=== PATIENT | male | born 1965 | race Caucasian/White ===

== ENCOUNTER 2017-12-07 22:05 | Emergency (ER) | payer SELFPAY ==
[2017-12-07] MEDS ORDERED: NA CHLORIDE 0.9% 1,000 ML ONE (22:48)
[2017-12-07 23:18] LABS: Absolute Lymphocytes (CBC) 1.7 K/uL (0.7-4.9); Absolute Neutrophil 13.9 K/uL (1.8-8.0); Basophils % 0.5 % (0-1.3); Eosinophils % 0.9 % (0-4.4); Hematocrit 39.6 % (39.6-49.0); Lymphocytes % 9.9 % (15.3-44.8); MCH 31.3 pg (27.0-35.0); MCV 89.6 fL (80-100); Monocytes % 6.1 % (3.3-12.3); RBC Red Blood Cell Count 4.42 M/uL (4.33-5.43)
[2017-12-07 23:29] LABS: ALT/SGPT 22 U/L (12-78); AST/SGOT 14 U/L (15-37); Albumin 3.9 g/dL (3.4-5.0); Alkaline Phosphatase 52 U/L (45-117); BUN Blood Urea Nitrogen 13 mg/dL (7-18); Bicarbonate 27 mmol/L (21-32); Bilirubin Direct < 0.1 mg/dL (0-0.2); Bilirubin Total 0.3 mg/dL (0.2-1.0); Glucose Level 107 mg/dL (74-106); Magnesium 2.3 mg/dL (1.8-2.4); Potassium 3.7 mmol/L (3.5-5.1); Sodium Level 144 mmol/L (136-145)
[2017-12-07] MEDS ORDERED: HYDROCODONE/CHLORPHEN 5 ML/OSYR ONE (23:32)
--- NOTE | 2017-12-08 00:47 | EDPHYS ---
Physician Documentation [facility] Name: Sterling Butcher Age: 52 yrs Sex: Male : 1965 Arrival Date: 12/07/2017 Time: 22:06 Bed 18 Private MD: ED Physician Saroj Ayon HPI: 12/08 00:00 This 52 yrs old Male presents to ER via EMS with complaints of Cough. pm1 00:00 The patient or guardian reports cough, with no sputum. Severity of symptoms: in the pm1 emergency department the symptoms. 00:00 Onset: The symptoms/episode began/occurred 3 day(s) ago. Modifying factors: The pm1 symptoms are alleviated by nothing, the symptoms are aggravated by nothing. Associated signs and symptoms: Pertinent positives: chest pain, with cough, fever, Pertinent negatives: sore throat, Shortness of breath. The patient has experienced similar episodes in the past, multiple times. The patient has not recently seen a physician. Patient presenting to the ER with complaints of cough. Patient with chest pain present only with coughing. He drank 2 monsters and 6 coffees to keep up playing with his grandchildren. . Historical: - Allergies: 12/07 22:13 Toradol; jd3 22:13 Benadryl; jd3 22:13 Phenergan; jd3 22:13 Flexeril; jd3 - Home Meds: 22:13 None [Active]; jd3 - PMHx: 22:13 Myocardial infarction; shingles; Hypertension; jd3 - PSHx: 22:13 right shoulder sx; jd3 - Immunization history:: Adult Immunizations up to date, Flu vaccine is up to date. - Social history:: Smoking status: Patient uses tobacco products, smokes one-half pack cigarettes per day. - Ebola Screening: : Patient negative for fever greater than or equal to 101.5 degrees Fahrenheit, and additional compatible Ebola Virus Disease symptoms. ROS: 12/08 00:00 Constitutional: Negative for fever, chills, and weight loss, Eyes: Negative for injury, pm1 pain, redness, and discharge, ENT: Negative for injury, pain, and discharge, Neck: Negative for injury, pain, and swelling, Cardiovascular: Negative for chest pain, palpitations, and edema. Abdomen/GI: Negative for abdominal pain, nausea, vomiting, diarrhea, and constipation, Back: Negative for injury and pain, : Negative for injury, bleeding, discharge, and swelling, MS/Extremity: Negative for injury and deformity, Skin: Negative for injury, rash, and discoloration, Neuro: Negative for headache, weakness, numbness, tingling, and seizure. Respiratory: Positive for cough, Negative for shortness of breath, sputum production, wheezing. Exam: 00:00 Constitutional: This is a well developed, well nourished patient who is awake, alert, pm1 and in no acute distress. Head/Face: Normocephalic, atraumatic. Eyes: Pupils equal round and reactive to light, extra-ocular motions intact. Lids and lashes normal. Conjunctiva and sclera are non-icteric and not injected. Cornea within normal limits. Periorbital areas with no swelling, redness, or edema. ENT: Nares patent. No nasal discharge, no septal abnormalities noted. Tympanic membranes are normal and external auditory canals are clear. Oropharynx with no redness, swelling, or masses, exudates, or evidence of obstruction, uvula midline. Mucous membranes moist. Neck: Trachea midline, no thyromegaly or masses palpated, and no cervical lymphadenopathy. Supple, full range of motion without nuchal rigidity, or vertebral point tenderness. No Meningismus. Chest/axilla: Normal chest wall appearance and motion. Nontender with no deformity. No lesions are appreciated. Cardiovascular: Regular rate and rhythm with a normal S1 and S2. No gallops, murmurs, or rubs. Normal PMI, no JVD. No pulse deficits. Respiratory: Lungs have equal breath sounds bilaterally, clear to auscultation and percussion. No rales, rhonchi or wheezes noted. No increased work of breathing, no retractions or nasal flaring. Abdomen/GI: Soft, non-tender, with normal bowel sounds. No distension or tympany. No guarding or rebound. No evidence of tenderness throughout. Back: No spinal tenderness. No costovertebral tenderness. Full range of motion. Skin: Warm, dry with normal turgor. Normal color with no rashes, no lesions, and no evidence of cellulitis. MS/ Extremity: Pulses equal, no cyanosis. Neurovascular intact. Full, normal range of motion. 00:00 Neuro: Orientation: is normal, Motor: is normal, moves all fours. Vital Signs: 12/07 22:14 BP 150 / 87; Pulse 128; Resp 20 S; Temp 98.5(O); Pulse Ox 99% on R/A; Weight 83.01 kg jd3 (R); Height 5 ft. 5 in. (165.10 cm) (R); Pain 8/10; 23:29 BP 122 / 78; Pulse 94; Resp 17 S; Pulse Ox 98% on R/A; jd3 12/08 01:10 BP 126 / 82; Pulse 84; Resp 16 S; Pulse Ox 98% on R/A; jd3 12/07 22:14 Body Mass Index 30.45 (83.01 kg, 165.10 cm) jd3 MDM: 12/07 22:32 Patient medically screened. pm1 12/08 00:46 Data reviewed: vital signs. Data interpreted: Pulse oximetry: on room air is 98 %. pm1 Interpretation: normal. Counseling: I had a detailed discussion with the patient and/or guardian regarding: the historical points, exam findings, and any diagnostic results supporting the discharge/admit diagnosis, lab results, radiology results, the need for outpatient follow up, to return to the emergency department if symptoms worsen or persist or if there are any questions or concerns that arise at home. 12/07 22:39 Order name: LFT's; Complete Time: 23:35 pm1 12/07 22:39 Order name: Magnesium; Complete Time: 23:35 pm1 12/07 22:39 Order name: Basic Metabolic Panel; Complete Time: 23:35 pm1 12/07 22:39 Order name: CBC with Diff; Complete Time: 23:26 pm1 12/07 22:39 Order name: XRAY Chest (1 view) pm1 12/07 23:38 Order name: Flu; Complete Time: 00:43 pm1 12/07 22:39 Order name: EKG; Complete Time: 22:39 pm1 12/07 22:39 Order name: Cardiac monitoring; Complete Time: 22:39 pm1 12/07 22:39 Order name: EKG - Nurse/Tech; Complete Time: 22:39 pm1 12/07 22:39 Order name: IV Saline Lock; Complete Time: 22:40 pm1 12/07 22:39 Order name: Labs collected and sent; Complete Time: 22:49 pm1 12/07 22:39 Order name: O2 Per Protocol; Complete Time: 22:40 pm1 12/07 22:39 Order name: O2 Sat Monitoring; Complete Time: 22:40 pm1 Administered Medications: 12/07 22:49 Drug: NS 0.9% 1000 ml Route: IV; Rate: 1000 ml; Site: right antecubital; jd3 23:55 Follow up: Response: No adverse reaction; IV Status: Completed infusion; IV Intake: jd3 1000ml 23:28 Drug: Tussionex Pennkinetic ER 5 ml Route: PO; jd3 23:55 Follow up: Response: No adverse reaction jd3 23:28 CANCELLED (Duplicate Order): Tussionex Pennkinetic ER 5 ml PO once jd3 12/08 00:57 Drug: Rocephin 1 grams Route: IV; Rate: calculated rate; Site: right antecubital; jd3 01:11 Follow up: Response: No adverse reaction; IV Status: Completed infusion jd3 Disposition: 12/08/17 00:47 Discharged to Home. Impression: Bronchitis, not specified as acute or chronic. - Condition is Stable. - Discharge Instructions: Acute Bronchitis, Adult, Steps to Quit Smoking, [id number], How to Use an Inhaler, [id number]. - Prescriptions for Zithromax Z- Maynor 250 mg Oral Tablet - take 1 tablet by ORAL route as directed for 5 days Day 1 - take two (2) tablets one time. Day 2, 3, 4 , 5 take one (1) tablet once daily.; 6 tablet. Medrol (Maynor) 4 mg Oral Tablets, Dose Pack - take 1 tablet by ORAL route as directed - follow package instructions; 1 packet. Albuterol Sulfate 90 mcg/actuation - inhale 1-2 puff by INHALATION route every 4-6 hours; 1 Inhaler. Guaifenesin AC 10- 100 mg/5 mL Oral Liquid - take 10 milliliter by ORAL route every 4 hours As needed; 240 milliliter. - Medication Reconciliation Form, Thank You Letter, Antibiotic Education form. - Follow up: Emergency Department; When: As needed; Reason: Worsening of condition. Follow up: Private Physician; When: 2 - 3 days; Reason: Recheck today's complaints, Continuance of care, Re-evaluation by your physician. - Problem is new. - Symptoms have improved. Addendum: 12/09/2017 04:10 Co-signature as Attending Physician, Saroj Ayon MD. g s Signatures: Dispatcher [employer] EDMS Cristo Dicskon, MOVING WORKER MOVING WORKER pm1 Saroj Ayon MD MD gs Davies, Jonathon, RN RN jd3 Corrections: (The following items were deleted from the chart) 12/07 23:28 23:28 Tussionex Pennkinetic ER Suspension 5 ml PO once ordered. jd3 jd3 12/08 01:11 00:47 12/08/2017 00:47 Discharged to Home. Impression: Bronchitis, not specified as jd3 acute or chronic. Condition is Stable. Forms are Medication Reconciliation Form, Thank You Letter, Antibiotic Education, Prescription Opioid Use. Follow up: Emergency Department; When: As needed; Reason: Worsening of condition. Follow up: Private Physician; When: 2 - 3 days; Reason: Recheck today's complaints, Continuance of care, Re-evaluation by your physician. Problem is new. Symptoms have improved. pm1
--- NOTE | 2017-12-08 00:47 | ER ---
Nurse's Notes [facility] Name: Sterling Butcher Age: 52 yrs Sex: Male : 1965 Arrival Date: 12/07/2017 Time: 22:06 Bed 18 Private MD: Diagnosis: Bronchitis, not specified as acute or chronic Presentation: 12/07 22:07 Presenting complaint: Patient states: "my chest hurts I'm coughing so hard, I also have jd3 been having a headache and a fever today." EMS states: "we were told that he had a fever prior to arrival, no fever when we took it, but he has also been coughing really hard for the past three hours saying it is really starting to hurt.". Transition of care: patient was not received from another setting of care. Onset of symptoms was December 07, 2017. Risk Assessment: Do you want to hurt yourself or someone else? Patient reports no desire to harm self or others. Initial Sepsis Screen: Does the patient meet any 2 criteria? HR > 90 bpm. No. Patient's initial sepsis screen is negative. Does the patient have a suspected source of infection? Yes: Productive cough/pneumonia. Care prior to arrival: Medication(s) given: zofran 4 mg, IV initiated. 20 GA, in the right antecubital area, Glucose check: 120. 22:07 Method Of Arrival: EMS: [facility] jd3 22:07 Acuity: SHEREE 2 jd3 Historical: - Allergies: 22:13 Toradol; jd3 22:13 Benadryl; jd3 22:13 Phenergan; jd3 22:13 Flexeril; jd3 - Home Meds: 22:13 None [Active]; jd3 - PMHx: 22:13 Myocardial infarction; shingles; Hypertension; jd3 - PSHx: 22:13 right shoulder sx; jd3 - Immunization history:: Adult Immunizations up to date, Flu vaccine is up to date. - Social history:: Smoking status: Patient uses tobacco products, smokes one-half pack cigarettes per day. - Ebola Screening: : Patient negative for fever greater than or equal to 101.5 degrees Fahrenheit, and additional compatible Ebola Virus Disease symptoms. Screenin:19 Abuse screen: Denies threats or abuse. Nutritional screening: No deficits noted. jd3 Tuberculosis screening: Tuberculosis screening: No symptoms or risk factors identified. Fall Risk IV access (20 points). Ambulatory Aid- None/Bed Rest/Nurse Assist (0 pts). Gait- Normal/Bed Rest/Wheelchair (0 pts) Mental Status- Oriented to own ability (0 pts). Total Doyle Fall Scale indicates No Risk (0-24 pts). Assessment: 22:15 General: Appears uncomfortable, Behavior is cooperative, appropriate for age, anxious. jd3 Pain: Complains of pain in head and chest Pain does not radiate. Quality of pain is described as aching, Pain began gradually. Neuro: Level of Consciousness is awake, alert, obeys commands, Oriented to person, place, time, situation, Appropriate for age. Cardiovascular: Heart tones S1 S2 present Capillary refill < 3 seconds Patient's skin is warm and dry. Rhythm is sinus tachycardia. Respiratory: Airway is patent Respiratory effort is even, unlabored, Respiratory pattern is regular, symmetrical, Breath sounds with wheezes bilaterally. GI: Abdomen is round non-distended, Reports nausea, Patient currently denies abdominal pain. : No signs and/or symptoms were reported regarding the genitourinary system. EENT: No signs and/or symptoms were reported regarding the EENT system. Derm: Skin is intact, Skin is dry, Skin is normal, Skin temperature is warm. Musculoskeletal: Circulation, motion, and sensation intact. Range of motion: intact in all extremities. 23:29 Reassessment: Patient appears in no apparent distress at this time. Patient and/or jd3 family updated on plan of care and expected duration. Pain level reassessed. Patient is alert, oriented x 3, equal unlabored respirations, skin warm/dry/pink. 12/08 01:10 Reassessment: Patient appears in no apparent distress at this time. Patient and/or jd3 family updated on plan of care and expected duration. Pain level reassessed. Patient is alert, oriented x 3, equal unlabored respirations, skin warm/dry/pink. Patient states feeling better. Vital Signs: 12/07 22:14 BP 150 / 87; Pulse 128; Resp 20 S; Temp 98.5(O); Pulse Ox 99% on R/A; Weight 83.01 kg jd3 (R); Height 5 ft. 5 in. (165.10 cm) (R); Pain 8/10; 23:29 BP 122 / 78; Pulse 94; Resp 17 S; Pulse Ox 98% on R/A; jd3 12/08 01:10 BP 126 / 82; Pulse 84; Resp 16 S; Pulse Ox 98% on R/A; jd3 12/07 22:14 Body Mass Index 30.45 (83.01 kg, 165.10 cm) jd3 ED Course: 12/07 22:06 Patient arrived in ED. am2 22:06 Andrew Chao RN is Primary Nurse. jd3 22:08 Cristo Dickson NP is PHCP. pm1 22:08 Saroj Ayon MD is Attending Physician. pm1 22:11 Triage completed. jd3 22:15 Arm band placed on. jd3 22:19 Patient has correct armband on for positive identification. Bed in low position. Call jd3 light in reach. Side rails up X2. Adult w/ patient. monitor and storage bin tender on. Pulse ox on. NIBP on. 22:20 Maintain EMS IV. Dressing intact. Good blood return noted. Site clean \\T\\ dry. Gauge \\T\\ byron 3 site: 20 G right AC. Patient maintains SpO2 saturation greater than 95% on room air. 22:50 X-ray completed. Portable x-ray completed in exam room. Patient tolerated procedure la2 well. 22:51 XRAY Chest (1 view) In Process Unspecified. EDMS 23:55 Flu Sent. jd3 12/08 01:09 No provider procedures requiring assistance completed. IV discontinued, intact, jd3 bleeding controlled, No redness/swelling at site. Pressure dressing applied. Administered Medications: 12/07 22:49 Drug: NS 0.9% 1000 ml Route: IV; Rate: 1000 ml; Site: right antecubital; jd3 23:55 Follow up: Response: No adverse reaction; IV Status: Completed infusion; IV Intake: jd3 1000ml 23:28 Drug: Tussionex Pennkinetic ER 5 ml Route: PO; jd3 23:55 Follow up: Response: No adverse reaction jd3 23:28 CANCELLED (Duplicate Order): Tussionex Pennkinetic ER 5 ml PO once jd3 12/08 00:57 Drug: Rocephin 1 grams Route: IV; Rate: calculated rate; Site: right antecubital; jd3 01:11 Follow up: Response: No adverse reaction; IV Status: Completed infusion jd3 Intake: 12/07 23:55 IV: 1000ml; Total: 1000ml. jd3 Outcome: 12/08 00:47 Discharge ordered by . pm1 01:09 Discharged to home ambulatory, with family. jd3 01:09 Condition: stable 01:09 Discharge instructions given to patient, family, Instructed on discharge instructions, follow up and referral plans. medication usage, Demonstrated understanding of instructions, follow-up care, medications, Prescriptions given X 4. 01:11 Patient left the ED. jd3 Signatures: Dispatcher [employer] EDMS Cristo Dickson NP MANUFACTURING ENGINEERING PROFESSOR pm1 Bernadette Clark Leslie la2 Andrew Chao, RN RN jd3 Corrections: (The following items were deleted from the chart) 12/07 22:21 22:07 Care prior to arrival: None. jd3 jd3 22:22 22:07 Care prior to arrival: IV initiated. 20 GA, in the right antecubital area, jd3 Glucose check: 120 jd3
[2017-12-08] MEDS ORDERED: CEFTRIAXONE/SWI 1gm 1 GM/10 ML SYR ONE (01:06)
--- NOTE | 2017-12-08 07:16 | RAD REPORT ---
EXAM DESCRIPTION: RAD - Chest Single View - 12/07/2017 10:51 pm CLINICAL HISTORY: Chest pain COMPARISON: None. TECHNIQUE: AP portable chest image was obtained 2248 hours . FINDINGS: Lungs are clear. Heart and vasculature are normal. No measurable pleural effusion and no p neumothorax. No acute bony abnormality seen. No acute aortic findings suspected. IMPRESSION: No acute cardiopulmonary process.
--- NOTE | 2017-12-08 10:03 | EKG ---
Test Date: 2017-12-07 Test Time: 22:27:09 Athlete Manager: ABEL MEASUREMENT RESULTS: Intervals: Rate: 105 W[place]: 134 QRSD: 80 QT: 330 QTc: 436 [place]: P: 75 W[place]: 134 QRS: 18 T: 59 INTERPRETIVE STATEMENTS: Sinus tachycardia Possible Left atrial enlargement Borderline ECG No previous ECG available for comparison Electronically Signed On 12-08-17 10:02:43 CDT by Royer Florence
== END 2017-12-08 01:11 | disposition home or self-care (01) ==
LOC: ER 22:05
DX: J40 Bronchitis, not specified as acute or chronic (principal); I10 Essential (primary) hypertension; I25.2 Old myocardial infarction; F17.210 Nicotine dependence, cigarettes, uncomplicated; Z88.5 Allergy status to narcotic agent; Z88.8 Allergy status to other drugs, medicaments and biological substances
CPT/HCPCS: 36415; 71045; 80048; 80076; 83735; 85025; 87804; 93005; 96361; 96374; 99285; J0696; J7030

== ENCOUNTER 2018-01-19 18:16 | Emergency (ER) | payer SELFPAY ==
[2018-01-19] MEDS ORDERED: ONDANSETRON 4 MG/2 ML VIAL ONE (19:33)
[2018-01-19] MEDS ORDERED: MEPERIDINE HCL 25 MG/0.5 ML ONE (19:33)
[2018-01-19] MEDS ORDERED: MEPERIDINE HCL 50 MG/ML AMP ONE (19:33)
--- NOTE | 2018-01-19 19:38 | RAD REPORT ---
EXAM DESCRIPTION: RAD - Tib Fib Right - 01/19/2018 7:23 pm CLINICAL HISTORY: Blunt force trauma distal leg and ankle region COMPARISON: None. FINDINGS: No fracture is identified. There is no dislocation or periosteal reaction noted. No acute or suspicious bony finding. No foreign body or other soft tissue abnormality. IMPRESSION: Negative right tibia & fibula examination.
--- NOTE | 2018-01-19 19:59 | EDPHYS ---
Physician Documentation [facility] Name: Sterling Butcher Age: 52 yrs Sex: Male : 1965 Arrival Date: 01/19/2018 Time: 18:19 Bed 25 Private MD: Out, [facility] ED Physician Brennan Esqueda HPI: 01/19 19:00 This 52 yrs old Male presents to ER via Wheelchair with complaints of Leg willy Injury. 19:00 The patient presents with decreased range of motion, pain. The complaints affect the willy lateral aspect of right calf, right ankle, right calf, right Achilles, medial aspect of right calf, right finn and anterior aspect of right ankle. Context: resulted from a direct blow, the patient is not able to bear weight, the patient is not able to ambulate. Onset: The symptoms/episode began/occurred yesterday. Modifying factors: The symptoms are alleviated by elevating leg, remaining still, the symptoms are aggravated by movement, weight bearing. Associated signs and symptoms: The patient has no apparent associated signs or symptoms. Treatment prior to arrival includes: elevation of the extremity, over the counter medications, NSAIDS. The patient has not experienced similar symptoms in the past. Historical: - Allergies: 18:28 Benadryl; sg 18:28 Flexeril; sg 18:28 Phenergan; sg 18:28 Toradol; sg - PMHx: 18:28 Hypertension; Myocardial infarction; shingles; sg - PSHx: 18:28 right shoulder sx; sg - Immunization history:: Adult Immunizations up to date, Last tetanus immunization: up to date. - Social history:: Smoking status: Patient/guardian denies using tobacco. - Ebola Screening: : Patient negative for fever greater than or equal to 101.5 degrees Fahrenheit, and additional compatible Ebola Virus Disease symptoms Patient denies exposure to infectious person Patient denies travel to an Ebola-affected area in the 21 days before illness onset No symptoms or risks identified at this time. - Family history:: not pertinent. ROS: 19:00 Constitutional: Negative for fever, chills, and weight loss, Eyes: Negative for injury, willy pain, redness, and discharge, ENT: Negative for injury, pain, and discharge, Neck: Negative for injury, pain, and swelling, Cardiovascular: Negative for chest pain, palpitations, and edema, Respiratory: Negative for shortness of breath, cough, wheezing, and pleuritic chest pain, Abdomen/GI: Negative for abdominal pain, nausea, vomiting, diarrhea, and constipation, Back: Negative for injury and pain, : Negative for injury, bleeding, discharge, and swelling, Skin: Negative for injury, rash, and discoloration, Neuro: Negative for headache, weakness, numbness, tingling, and seizure, Psych: Negative for depression, anxiety, suicide ideation, homicidal ideation, and hallucinations, Allergy/Immunology: Negative for hives, rash, and allergies, Endocrine: Negative for neck swelling, polydipsia, polyuria, polyphagia, and marked weight changes, Hematologic/Lymphatic: Negative for swollen nodes, abnormal bleeding, and unusual bruising. 19:00 MS/extremity: Positive for decreased range of motion, pain, swelling, tenderness, of the right leg and right finn and medial aspect of right calf and lateral aspect of right calf. Exam: 19:00 Constitutional: This is a well developed, well nourished patient who is awake, alert, willy and in no acute distress. Head/Face: Normocephalic, atraumatic. Eyes: Pupils equal round and reactive to light, extra-ocular motions intact. Lids and lashes normal. Conjunctiva and sclera are non-icteric and not injected. Cornea within normal limits. Periorbital areas with no swelling, redness, or edema. ENT: Nares patent. No nasal discharge, no septal abnormalities noted. Tympanic membranes are normal and external auditory canals are clear. Oropharynx with no redness, swelling, or masses, exudates, or evidence of obstruction, uvula midline. Mucous membranes moist. Neck: Trachea midline, no thyromegaly or masses palpated, and no cervical lymphadenopathy. Supple, full range of motion without nuchal rigidity, or vertebral point tenderness. No Meningismus. Chest/axilla: Normal chest wall appearance and motion. Nontender with no deformity. No lesions are appreciated. Cardiovascular: Regular rate and rhythm with a normal S1 and S2. No gallops, murmurs, or rubs. Normal PMI, no JVD. No pulse deficits. Respiratory: Lungs have equal breath sounds bilaterally, clear to auscultation and percussion. No rales, rhonchi or wheezes noted. No increased work of breathing, no retractions or nasal flaring. Abdomen/GI: Soft, non-tender, with normal bowel sounds. No distension or tympany. No guarding or rebound. No evidence of tenderness throughout. Back: No spinal tenderness. No costovertebral tenderness. Full range of motion. Male : Normal genitalia with no discharge or lesions. Skin: Warm, dry with normal turgor. Normal color with no rashes, no lesions, and no evidence of cellulitis. Neuro: Awake and alert, GCS 15, oriented to person, place, time, and situation. Cranial nerves II-XII grossly intact. Motor strength 5/5 in all extremities. Sensory grossly intact. Cerebellar exam normal. Normal gait. Psych: Awake, alert, with orientation to person, place and time. Behavior, mood, and affect are within normal limits. 19:00 Musculoskeletal/extremity: Extremities: decreased ROM, ecchymosis, pain, swelling, tenderness, ROM: limited active range of motion, limited passive range of motion, limited active range of motion due to pain, limited passive range of motion due to pain, Circulation is intact in all extremities. Sensation intact. Compartment Syndrome exam of affected extremity: is normal. Tendon exam: specific tendon testing normal through active and passive range of motion DVT Exam: negative Homans' sign noted on exam, no erythema, no increased warmth, pain, swelling, tenderness, bluish discoloration. 19:59 Musculoskeletal/extremity: Compartment Syndrome exam of affected extremity: Joints: the [facility] right ankle displays pain at rest, painful range of motion, tenderness. Vital Signs: 18:27 BP 155 / 93; Pulse 89; Resp 17; Temp 98.0; Pulse Ox 99% on R/A; Weight 82.55 kg (R); sg Height 5 ft. 5 in. (165.10 cm) (R); Pain 10/10; 19:45 BP 148 / 91; Pulse 98; Resp 18; Pulse Ox 98% on R/A; lp1 18:27 Body Mass Index 30.29 (82.55 kg, 165.10 cm) MDM: 18:26 Patient medically screened. [facility] 19:06 Data reviewed: vital signs, nurses notes, radiologic studies, plain films. [facility] 01/19 18:59 Order name: Tib Fib Right XRAY; Complete Time: 19:46 [facility] 01/19 19:30 Order name: Foot Right 3 View XRAY [facility] 01/19 18:59 Order name: Ice pack; Complete Time: 19:30 [facility] 01/19 19:30 Order name: Splint - Ankle: Posterior; Complete Time: 20:03 [facility] 01/19 19:30 Order name: Crutches; Complete Time: 20:04 [facility] Administered Medications: 19:35 Drug: Demerol 75 mg Route: IM; Site: right gluteus; lp1 20:16 Follow up: Response: Pain is decreased lp1 19:35 Drug: Zofran 8 mg Route: IM; Site: right gluteus; lp1 20:16 Follow up: Response: No adverse reaction lp1 Disposition: 01/19/18 19:59 Discharged to Home. Impression: Contusion of right lower leg - hematoma, pain, Crushing injury of right lower leg. - Condition is Stable. - Discharge Instructions: Ankle Sprain, Contusion, Ankle Sprain, [id number], Contusion, [id number], Ankle Pain. - Prescriptions for Tylenol- Codeine #3 300-30 mg Oral Tablet - take 2 tablet by ORAL route every 6 hours As needed; 30 tablet. Motrin IB 200 mg Oral Tablet - take 2 tablet by ORAL route every 6 hours As needed as needed with food; 20 tablet. - Medication Reconciliation Form, Thank You Letter, Antibiotic Education, Prescription Opioid Use form. - Follow up: Private Physician; When: 2 - 3 days; Reason: Recheck today's complaints, Continuance of care, Re-evaluation by your physician. Follow up: Alexandru Reeder; When: 1 - 2 days; Reason: Recheck today's complaints, Continuance of care, Re-evaluation by your physician. - Problem is new. - Symptoms have improved. Signatures: Dispatcher [employer] EDMS Leo Ellington RN RN sg Anderson, Corey, MD MD cha Pena, Laura, RN RN lp1 Corrections: (The following items were deleted from the chart) 20:19 19:59 01/19/2018 19:59 Discharged to Home. Impression: Contusion of right lower leg - lp1 hematoma, pain; Crushing injury of right lower leg. Condition is Stable. Discharge Instructions: Ankle Sprain, Contusion, Ankle Sprain, [id number], Contusion, [id number]-[id number], Ankle Pain. Prescriptions for Tylenol-Codeine #3 300-30 mg Oral Tablet - take 2 tablet by ORAL route every 6 hours As needed; 30 tablet, Motrin IB 200 mg Oral Tablet - take 2 tablet by ORAL route every 6 hours As needed as needed with food; 20 tablet. and Forms are Medication Reconciliation Form, Thank You Letter, Antibiotic Education, Prescription Opioid Use. Follow up: Private Physician; When: 2 - 3 days; Reason: Recheck today's complaints, Continuance of care, Re-evaluation by your physician. Follow up: Alexandru Reeder; When: 1 - 2 days; Reason: Recheck today's complaints, Continuance of care, Re-evaluation by your physician. Problem is new. Symptoms have improved. willy
--- NOTE | 2018-01-19 19:59 | ER ---
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 Transition of care: patient was not received from another setting of care. Onset of symptoms was January 19, 2018. Risk Assessment: Do you want to hurt yourself or someone else? Patient reports no desire to harm self or others. Initial Sepsis Screen: Does the patient meet any 2 criteria? No. Patient's initial sepsis screen is negative. Does the patient have a suspected source of infection? No. Patient's initial sepsis screen is negative. Care prior to arrival: None. 18:25 Method Of Arrival: Wheelchair sg 18:25 Acuity: SHEREE 4 sg Triage Assessment: 20:08 Injury Description: Patient states dropping large plywood onto right ankle. lp1 Historical: - Allergies: 18:28 Benadryl; sg 18:28 Flexeril; sg 18:28 Phenergan; sg 18:28 Toradol; sg - PMHx: 18:28 Hypertension; Myocardial infarction; shingles; sg - PSHx: 18:28 right shoulder sx; sg - Immunization history:: Adult Immunizations up to date, Last tetanus immunization: up to date. - Social history:: Smoking status: Patient/guardian denies using tobacco. - Ebola Screening: : Patient negative for fever greater than or equal to 101.5 degrees Fahrenheit, and additional compatible Ebola Virus Disease symptoms Patient denies exposure to infectious person Patient denies travel to an Ebola-affected area in the 21 days before illness onset No symptoms or risks identified at this time. - Family history:: not pertinent. Screenin:53 Abuse screen: Denies threats or abuse. Denies injuries from another. Nutritional aj1 screening: No deficits noted. Tuberculosis screening: No symptoms or risk factors identified. 20:07 Fall Risk None identified. lp1 Assessment: 18:53 General: Appears in no apparent distress. uncomfortable, Behavior is calm, cooperative, aj1 appropriate for age. Pain: Complains of pain in right ankle Pain currently is 10 out of 10 on a pain scale. Neuro: Level of Consciousness is awake, alert, obeys commands. Cardiovascular: Patient's skin is warm and dry. Respiratory: Airway is patent Respiratory effort is even, unlabored, Respiratory pattern is regular, symmetrical. GI: No signs and/or symptoms were reported involving the gastrointestinal system. : No signs and/or symptoms were reported regarding the genitourinary system. EENT: No signs and/or symptoms were reported regarding the EENT system. Derm: Skin is pink, warm \T\ dry. normal, Bruising that is on right ankle. Musculoskeletal: Range of motion: limited in right ankle Swelling present in right ankle. 19:30 Reassessment: Patient is alert, oriented x 3, equal unlabored respirations, skin lp1 warm/dry/pink. Pain: Complains of pain in right ankle. Derm: Bruising that is dark purple, on right ankle. 20:17 Reassessment: Patient has crutches from home to use, brought by significant other. lp1 Vital Signs: 18:27 BP 155 / 93; Pulse 89; Resp 17; Temp 98.0; Pulse Ox 99% on R/A; Weight 82.55 kg (R); sg Height 5 ft. 5 in. (165.10 cm) (R); Pain 10/10; 19:45 BP 148 / 91; Pulse 98; Resp 18; Pulse Ox 98% on R/A; lp1 18:27 Body Mass Index 30.29 (82.55 kg, 165.10 cm) sg ED Course: 18:19 Patient arrived in ED. sb2 18:20 Out, of Town is Private Physician. sb2 18:26 Brennan Esqueda MD is Attending Physician. willy 18:27 Triage completed. sg 18:27 Arm band placed on. sg 18:53 Patient has correct armband on for positive identification. Bed in low position. Call aj1 light in reach. Side rails up X 1. 18:53 No provider procedures requiring assistance completed. aj1 19:22 Monika Rock, AYO is Primary Nurse. lp1 19:24 Tib Fib Right XRAY In Process Unspecified. EDMS 19:44 Patient did not have IV access during this emergency room visit. lp1 19:57 Foot Right 3 View XRAY In Process Unspecified. EDMS 19:59 Alexandru Reeder MD is Referral Physician. [facility] 20:03 Delmar wrap to right ankle Orthoglass splint: Posterior long leg splint applied on right jp3 leg. 20:04 Crutch training done. jp3 Administered Medications: 19:35 Drug: Demerol 75 mg Route: IM; Site: right gluteus; lp1 20:16 Follow up: Response: Pain is decreased lp1 19:35 Drug: Zofran 8 mg Route: IM; Site: right gluteus; lp1 20:16 Follow up: Response: No adverse reaction lp1 Outcome: 19:59 Discharge ordered by . [facility] 20:16 Discharged to home with family. lp1 20:16 Condition: good 20:16 Discharge instructions given to patient, significant other, Instructed on discharge instructions, follow up and referral plans. medication usage, Demonstrated understanding of instructions, follow-up care, medications, Prescriptions given X 2. 20:19 Patient left the ED. lp1 Signatures: Dispatcher [employer] EDKS Tnaisha Ruff RN RN aj1 Leo Ellington, Brennan Pastor RN, MD MD cha Pena, Laura, AYO RN lp1 Lizette Mejia sb2 Jae Turner jp3
--- NOTE | 2018-01-19 20:15 | RAD REPORT ---
EXAM DESCRIPTION: RAD - Foot Right 3 View - 01/19/2018 7:57 pm CLINICAL HISTORY: Blunt force trauma, foot and ankle pain COMPARISON: None. FINDINGS: No fracture, dislocation or periosteal reaction. No air or foreign body in the soft tissues. IMPRESSION: Negative right foot examination.
== END 2018-01-19 20:19 | disposition home or self-care (01) ==
LOC: ER 18:16
PROC: 2W3QX1Z Immobilization of Right Lower Leg using Splint (ICD-10-PCS; principal; 2018-01-19)
DX: S87.81XA Crushing injury of right lower leg, initial encounter (principal); S80.11XA Contusion of right lower leg, initial encounter; W22.8XXA Striking against or struck by other objects, initial encounter
CPT/HCPCS: 96372; 99284; J2175; J2405